=== PATIENT | female | born 1965 | race Caucasian/White ===

== ENCOUNTER → 2018-07-09 | Outpatient (CLI) | payer MEDICARE, OTHER ==
--- NOTE | 2018-07-09 16:12 | CT ---
EXAMINATION TYPE: CT abdomen pelvis wo con DATE OF EXAM: 07/09/2018 COMPARISON: None HISTORY: Episode of gross hematuria and low back pain. CT DLP: 1128 mGycm Automated exposure control for dose reduction was used. TECHNIQUE: Helical acquisition of images was performed from the lung bases through the pelvis. FINDINGS: LUNG BASES: Subsegmental linear changes at both lung bases.. LIVER/GB: Previous cholecystectomy changes are noted. PANCREAS: No significant abnormality is seen. SPLEEN: No significant abnormality is seen. Accessory spleen noted. ADRENALS: No significant abnormality is seen. KIDNEYS: 8mm exophytic lesion off the mid posterior pole right kidney measures 10 is indeterminate by noncontrast technique. No nephrolithiasis. ADENOPATHY: None visualized. OSSEOUS STRUCTURES: Hypertrophic and degenerative change of the spine.. BOWEL: Appendix normal. Diverticulosis of the colon. OTHER: Bladder is nondistended and limited in assessment. IMPRESSION: 1. No hydronephrosis or nephrolithiasis. Indeterminate 8 mm right renal lesion. Consider follow-up CT scan with contrast or MRI for further evaluation. 2. Postcholecystectomy changes. 3. The bladder is nondistended and limited in assessment. No obvious calcification or mucosal lesion. 4. Diverticulosis with no CT evidence of diverticulitis.
== END | disposition home or self-care (01) ==
LOC: RADCTMAIN 13:38
PROVIDERS: ATTEND Urology
DX: K57.90 Diverticulosis of intestine, part unspecified, without perforation or abscess without bleeding (principal); Z90.49 Acquired absence of other specified parts of digestive tract; Z91.048 Other nonmedicinal substance allergy status
CPT/HCPCS: 74176

== ENCOUNTER → 2019-01-15 | Outpatient (CLI) | payer MEDICARE, OTHER ==
--- NOTE | 2019-01-15 11:40 | US ---
EXAMINATION TYPE: US kidneys/renal and bladder DATE OF EXAM: 01/15/2019 COMPARISON: CT 07/09/2018 CLINICAL HISTORY: D41.01 R renal Mass. Right Renal mass seen on CT, pt states microscopic hematuria a nd urinary frequency EXAM MEASUREMENTS: Right Kidney: 11.2 x 5.0 x 5.2 cm Left Kidney: 10.4 x 5.5 x 4.1 cm Right Kidney: No evidence of hydro, hypoechoic lesion mid/lateral as internal debris and measures 1.7 x 1.1 x 1.7 cm . This does demonstrate increased through transmission Left Kidney: Appeared wnl Bladder: not fully distended, pt states bladder feels full Bilateral Jets seen: Left jet visualized There is no evidence for hydronephrosis at this point in time. No nephrolithiasis is seen. The uri nary bladder is anechoic. IMPRESSION: Complicated 1.7 cm right renal cyst. When measured in the coronal plane on the prior of 07/09/2018 this measures 1.4 cm. Given interval growth and slight internal complication short-term follow-up ultraso und in 6 months is recommended.
== END | disposition home or self-care (01) ==
LOC: RADUSWWP 10:10
PROVIDERS: ATTEND Urology
DX: N28.1 Cyst of kidney, acquired (principal); Z91.048 Other nonmedicinal substance allergy status
CPT/HCPCS: 76770

== ENCOUNTER → 2020-03-26 | Outpatient (CLI) | payer MEDICARE, OTHER ==
--- NOTE | 2020-03-26 10:08 | US ---
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 EXAM MEASUREMENTS: Right Kidney: 11.6 x 4.5 x 6.0 cm Left Kidney: 10.5 x 4.9 x 5.1 cm Right Kidney: No hydronephrosis. Exophytic cystic lesion visualized measuring 1.8 x 1.6 x 1.9 cm , al though this has increased in size from the prior ultrasound of 01/15/2019 where this measured 1.7 x 1. 1 x 1.7 cm there is no current internal complexity and this does measure fluid attenuation on the omaira or CT of 07/09/2018. Left Kidney: No hydronephrosis or masses seen Bladder: wnl Bilateral Jets seen: Yes There is no evidence for hydronephrosis at this point in time. No nephrolithiasis is seen. The urin ana cristina bladder is anechoic. Bilateral ureteral jets are seen. IMPRESSION: Evolving right renal cyst has slightly increased in size however decreased and complexity . This now appears anechoic with increased through transmission indicative of a simple cyst and appea rs benign sonographically.
== END | disposition home or self-care (01) ==
LOC: RADUSWWP 08:21
PROVIDERS: ATTEND Urology
DX: N28.1 Cyst of kidney, acquired (principal); Z91.048 Other nonmedicinal substance allergy status
CPT/HCPCS: 76770

== ENCOUNTER → 2020-08-11 | Outpatient (CLI) | payer MEDICARE, OTHER ==
--- NOTE | 2020-08-12 07:34 | US ---
EXAMINATION TYPE: US kidneys/renal and bladder DATE OF EXAM: 08/11/2020 COMPARISON: US 03/26/2020 CLINICAL HISTORY: N28.1 Cyst of kidney, acquired.... EXAM MEASUREMENTS: Right Kidney: 11.1 x 4.9 x 4.7 cm Left Kidney: 11.0 x 6.0 x 4.7 cm Right Kidney: No hydronephrosis. Cyst lower pole measuring 1.8 cm Left Kidney: No hydronephrosis or masses seen Bladder: wnl Bilateral Jets seen: yes IMPRESSION: 1. Simple appearing right renal cyst
== END | disposition home or self-care (01) ==
LOC: RADUSWWP 16:25
PROVIDERS: ATTEND Student in an Organized Health Care Education/Training Program
DX: N28.1 Cyst of kidney, acquired (principal); N18.30 Chronic kidney disease, stage 3 unspecified
CPT/HCPCS: 76770

== ENCOUNTER 2020-11-02 07:10 | Day surgery (SDC) | payer MEDICARE, OTHER ==
[2020-11-02] MEDS ORDERED: LACTATED RINGERS 1,000 ML IV SCH (07:24)
[2020-11-02] MEDS ORDERED: LIDOCAINE 1% (10MG/ML) FOR IV START INTRADERMA PRN (07:24)
[2020-11-02 07:40] VITALS: RESP 16; TEMP 98.3
[2020-11-02 08:03] LABS: Glucose,Whole Blood 179 mg/dL (75-99)
[2020-11-02] MEDS ORDERED: LIDOCAINE 1% INJ 10MG/ML (20 ML MDV) ONE (08:05)
[2020-11-02] MEDS ORDERED: PROPOFOL 10 MG/ML 20 ML VIAL IV ONE (08:05)
--- NOTE | 2020-11-02 08:53 | P.PCN ---
Date of Procedure: 11/02/20 Description of Procedure: BRIEF HISTORY: Patient is a 5-year-old male for outpatient colonoscopy for screening for malignant neoplasm of the colon. She denies any family history of colon cancer. Does suffer from constipation at baseline. No recent change in bowel habits. PROCEDURE PERFORMED: Colonoscopy with polypectomy. PREOPERATIVE DIAGNOSIS: Screening blood loss of the colon, last colonoscopy 10 years. ESTIMATED BLOOD LOSS: Minimal. IV sedation per Anesthesia. PROCEDURE: After informed consent was obtained, the patient, was brought into the endoscopy unit. IV sedation was administered by Anesthesia under continuous monitoring. Digital rectal examination was normal. Initially the Olympus CF-190 flexible video colonoscope was then inserted in the rectum, gradually advanced into the cecum without any difficulty. Careful examination was performed as the scope was gradually being withdrawn. Ileocecal valve and the appendiceal orifice were visualized and appeared normal. Prep was excellent. Mucosa of the cecum, ascending colon, transverse colon, descending colon, sigmoid colon, and rectum appeared normal. Multiple small and large diverticula in sigmoid colon noted. Flat 4 mm rectal polyp removed with cold snare polypectomy. Retroflexion was performed in the rectum and no lesions were seen, internal hemorrhoids. The patient tolerated the procedure well. IMPRESSION: Flat rectal polyp removed with cold snare. Moderate sigmoid diverticulosis. Internal hemorrhoids. RECOMMENDATIONS: Findings of this examination were discussed with the patient. Okay to resume diet. Okay to medications. Await pathology from polypectomy. Recommend repeat colonoscopy in 7 years pending pathology from polypectomy.
[2020-11-02 09:02] VITALS: BP 108/80; PULSE 72
== END 2020-11-02 09:15 | disposition home or self-care (01) ==
LOC: ORWHC2ENDO 07:10
PROVIDERS: ATTEND Internal Medicine
DX: Z12.11 Encounter for screening for malignant neoplasm of colon (principal); K62.1 Rectal polyp; K57.30 Diverticulosis of large intestine without perforation or abscess without bleeding; K64.8 Other hemorrhoids; I12.9 Hypertensive chronic kidney disease with stage 1 through stage 4 chronic kidney disease, or unspecified chronic kidney disease; E11.22 Type 2 diabetes mellitus with diabetic chronic kidney disease; N18.30 Chronic kidney disease, stage 3 unspecified; Z91.048 Other nonmedicinal substance allergy status; J45.909 Unspecified asthma, uncomplicated; E78.5 Hyperlipidemia, unspecified; F41.9 Anxiety disorder, unspecified; K21.9 Gastro-esophageal reflux disease without esophagitis; K44.9 Diaphragmatic hernia without obstruction or gangrene; Z85.820 Personal history of malignant melanoma of skin; Z79.51 Long term (current) use of inhaled steroids; Z79.84 Long term (current) use of oral hypoglycemic drugs; Z79.899 Other long term (current) drug therapy
CPT/HCPCS: 88305; 45385; J2001; J2704

== ENCOUNTER 2020-12-13 06:56 | Day surgery (SDC) | payer MEDICARE, OTHER ==
[2020-12-10 11:19] VITALS: BMI 30.2
[~2020-12-13 06:56] MED LIST: LACTATED RINGERS 1,000 ML IV SCH
[2020-12-13 07:19] VITALS: RESP 16; TEMP 98.4
[2020-12-13 07:32] LABS: Glucose,Whole Blood 120 mg/dL (75-99)
[2020-12-13] MEDS ORDERED: LIDOCAINE 1% (10MG/ML) FOR IV START INTRADERMA ONE (07:32)
[2020-12-13] MEDS ORDERED: LIDOCAINE 1% INJ 10MG/ML (20 ML MDV) ONE (07:42)
[2020-12-13] MEDS ORDERED: PROPOFOL 10 MG/ML 20 ML VIAL IV ONE (07:42)
--- NOTE | 2020-12-13 08:05 | P.PCN ---
Date of Procedure: 12/13/20 Description of Procedure: BRIEF HISTORY: Patient is a 55-year-old female presenting with complaints of epigastric abdominal pain for esophagogastroduodenoscopy. Patient reports frequent episodes of epigastric pain. She'll have episodes of vomiting and reports difficulty digesting. She was started on Protonix therapy for the past 3-8 weeks but feels that her symptoms of pain in spite of the medication. PROCEDURE PERFORMED: Esophagogastroduodenoscopy with biopsy. PREOPERATIVE DIAGNOSIS: Epigastric abdominal pain, vomiting. ESTIMATED BLOOD LOSS: Minimal. IV sedation per anesthesia. PROCEDURE: After informed consent was obtained, the patient was brought into the endoscopy unit. IV sedation was administered by Anesthesia under continuous monitoring. Initially the Olympus GIF-190 video endoscope was inserted into the mouth. Esophagus intubated without any difficulty. It was gradually advanced into the stomach and duodenum and carefully examined. The bulb and the second part of the duodenum appeared normal, with biopsies taken. The scope at this time was withdr awn to the stomach, adequately insufflated with air, and upon careful examination, mucosa of the antrum, body, cardia and the fundus appeared normal, except for some mild erythema in the antrum and body suggestive of mild gastritis with biopsies taken. It appeared as if the fundus and cardia were in the intrathoracic cavity and this may be causing the patient's symptoms of vomiting. The scope was then withdrawn into the esophagus. The GE junction was located at 39 cm from the incisors and biopsied. The esophagus appeared normal, with mid esophageal biopsies taken. There were no erosions or ulcerations seen and the patient tolerated the procedure well. IMPRESSION: 1. Mild gastritis. 2. Biopsies of the duodenum, antrum and body, GE junction and midesophagus. RECOMMENDATIONS: The findings of this examination were discussed with the patient and her family. Okay to resume diet. Okay to resume medications. Can consider x-ray of the chest and abdomen or x-ray barium swallow to rule out migration of part of the stomach into the intrathoracic cavity which appeared to be a possibility on EGD, if this is confirmed patient will benefit from referral to the surgical service for further evaluation. Otherwise continue medical management. Await pathology from biopsies.
[2020-12-13 08:21] VITALS: BP 149/94; PULSE 63
== END 2020-12-13 08:48 | disposition home or self-care (01) ==
LOC: ORWHC2ENDO 06:56
PROVIDERS: ATTEND Internal Medicine
DX: K29.80 Duodenitis without bleeding (principal); K29.50 Unspecified chronic gastritis without bleeding; K21.00 Gastro-esophageal reflux disease with esophagitis, without bleeding; I10 Essential (primary) hypertension; E78.5 Hyperlipidemia, unspecified; N28.9 Disorder of kidney and ureter, unspecified; E11.9 Type 2 diabetes mellitus without complications; G89.29 Other chronic pain; M54.2 Cervicalgia; M06.9 Rheumatoid arthritis, unspecified; R56.9 Unspecified convulsions; Z97.2 Presence of dental prosthetic device (complete) (partial); Z79.84 Long term (current) use of oral hypoglycemic drugs; Z79.899 Other long term (current) drug therapy
CPT/HCPCS: 88305; 43239; J2001; J2704

== ENCOUNTER → 2021-01-21 | Outpatient (CLI) | payer MEDICARE, OTHER ==
--- NOTE | 2021-01-21 12:45 | FL ---
EXAMINATION TYPE: FL barium swallow DATE OF EXAM: 01/21/2021 CLINICAL HISTORY: Dysphasia. Hiatal hernia on recent endoscopy per patient. Recurrent episodes of vom iting over last 4 months per patient. TECHNIQUE: A double contrast esophagram is performed utilizing air and barium. A total of 34 second s of fluoroscopic time was utilized during procedure and 43 images obtained COMPARISON: CT abdomen and pelvis July 09, 2018 FINDINGS: The esophagus shows satisfactory motility and emptying into the stomach. No diverticulum. No evidence of fixed hiatal hernia or stricture noted. No intraluminal mass. No significant gastroeso phageal reflux was seen during real time performance of this study. Cholecystectomy clips incidentall y noted during real-time performance of study. IMPRESSION: No significant abnormality is seen to account for patient's symptoms.
== END ==
LOC: RADUSWWP 10:56
PROVIDERS: ATTEND Internal Medicine
DX: K44.9 Diaphragmatic hernia without obstruction or gangrene (principal)
CPT/HCPCS: 74220

== ENCOUNTER → 2021-01-31 | Outpatient (CLI) | payer MEDICARE, OTHER ==
--- NOTE | 2021-01-31 13:33 | NM ---
EXAMINATION TYPE: NM gastric emptying static DATE OF EXAM: 01/31/2021 COMPARISON: NONE HISTORY: E 11.65, diabetes type 2 and hyperglycemia Following administration of 2.0 mCi Tc 99m Sulfur Colloid with 3.5 ounces of egg beaters, 7 ounces of water, 3/4 piece of toast with jam, projection images of the abdomen were obtained 10 minutes post i ngestion. Patient Emptying Values 1 Hour 13 % 2 Hours 39 % 3 Hours 68 % 4 Hours 85 % Gastroesophagel reflux: None IMPRESSION: Gastric emptying: Is delayed Gastroesophageal reflux: None Gastric emptying normal percentage values: 30 minutes: <70% of retention (> 30% emptying) suggests abnormally fast emptying. 60 minutes: <90% retention (>10% emptying) is normal; less than 30% retention (>70% emptying) suggest s abnormally rapid empying. 90 minutes: <65% retention (> 35% emptying) is normal. 120 minutes: <60% retention (> 40% emptying) is normal. 180 minutes: <30% retention (> 70% emptying) is normal. Gastric emptying T-1/2: Solid: The normal range is 60-105 minutes Liquid only: Normal range is 10-45 minutes. Liquid only-children: At 60 minutes, normal range is 44-58 % . Liquid only-infants: At 60 minutes, normal range is 32-64 %.
== END | disposition home or self-care (01) ==
LOC: RADNMMAIN 06:50
PROVIDERS: ATTEND Internal Medicine
DX: K30 Functional dyspepsia (principal)
CPT/HCPCS: 78264; A9541

== ENCOUNTER 2021-09-18 14:57 | Inpatient (IN) | payer MEDICARE, MEDICAID ==
--- NOTE | 2021-09-18 15:46 | ED ---
General Adult HPI - General Chief complaint: Psychiatric Symptoms Stated complaint: mental health Time Seen by Provider: 09/18/21 15:15 Source: patient, police, EMS Mode of arrival: ambulatory Limitations: no limitations - History of Present Illness Initial comments: Dictation was produced using [employer] dictation software. please excuse any grammatical, word or spelling errors. Chief Complaint: 55-year-old female presents via Police Department for suicidal attempt History of Present Illness: 55-year-old female she is a poor historian. She is allegedly brought here by police department for attempted suicide. Patient states she took 6 of her prescription medications, gabapentin and cyclobenzaprine in order to try to harm herself. [employer] was called by patient's . Patient reports that her always does this. She does not know the exact time of ingestion but it was sometime today. According to patient's medical chart she takes 10 mg tabs of cyclobenzaprine and 300 mg tabs of gabapentin. She does not feel suicidal at this time. She does not felt depressed. She is ready to go home she states. The ROS documented in this emergency department record has been reviewed and confirmed by me. Those systems with pertinent positive or negative responses have been documented in the HPI. All other systems are other negative and/or noncontributory. PHYSICAL EXAM: General Impression: Alert and oriented x3, not in acute distress HEENT: Normocephalic atraumatic, extra-ocular movements intact, pupils equal and reactive to light bilaterally, mucous membranes moist. Cardiovascular: Heart regular rate and rhythm Chest: Able to complete full sentences, no retractions, no tachypnea Abdomen: abdomen soft, non-tender, non-distended, no organomegaly Musculoskeletal: Pulses present and equal in all extremities, no peripheral edema Motor: no focal deficits noted Neurological: CN II-XII grossly intact, no focal motor or sensory deficits noted Skin: Multiple superficial abrasions to the extremities Psych: Normal affect and mood ED course: 55-year-old well-appearing female presents to the emergency depa rtment for suicidal attempt. She allegedly overdosed and has what appears to be self inflicted wounds although superficial. [employer] enforcement was called by who was worried about her well-being. Patient allegedly took 6 each of her Flexeril and gabapentin prescription medications sometime today. Signs upon arrival are within acceptable limits. EKG shows no prolonged QT or widened QRS. Poison controlled was contacted and no recommendations except for observation. Laboratory evaluation obtained. CBC, metabolic panel is unremarkable. Tox labs are negative. Patient medically cleared for EPS. EPS evaluated patient and will admit to inpatient psychiatry. EKG interpretation: Ventricular rate 75, normal sinus rhythm, OH interval 150, QRS 80, QTc 413. No OH prolongation, no QTC prolongation, no ST or T-wave changes noted. Overall, this EKG is unremarkable - Related Data Home Medications Medication Instructions Recorded Confirmed Cyclobenzaprine [Flexeril] 10 mg PO TID 08/17/16 09/18/21 DULoxetine HCL [Cymbalta] 30 mg PO BID 08/17/16 09/18/21 metFORMIN HCL [Glucophage] 1,000 mg PO BID 08/17/16 09/18/21 Pantoprazole Sodium 40 mg PO DAILY 10/27/20 09/18/21 Pioglitazone [Actos] 30 mg PO HS 12/10/20 09/18/21 Albuterol Sulfate [Proventil Hfa] 2 puff INHALATION RT-Q4H PRN 09/18/21 09/18/21 Atorvastatin [Lipitor] 80 mg PO DAILY 09/18/21 09/18/21 Gabapentin 800 mg PO TID 09/18/21 09/18/21 Ondansetron [Zofran] 4 mg PO DAILY PRN 09/18/21 09/18/21 Sucralfate [Carafate] 1 gm PO BID 09/18/21 09/18/21 sitaGLIPtin [Januvia] 50 mg PO DAILY 09/18/21 09/18/21 Allergies Allergy/AdvReac Type Severity Reaction Status Date / Time adhesive tape Allergy Rash/Hives Verified 09/18/21 15:13 Review of Systems ROS Statement: Those systems with pertinent positive or pertinent negative responses have been documented in the HPI. ROS Other: All systems not noted in ROS Statement are negative. Past Medical History Past Medical History: Asthma, Cancer, Diabetes Mellitus, GERD/Reflux, Hyperlipidemia, Hypertension, Musculoskeletal Disorder, Renal Disease, Rheumatoid Arthritis (RA), Seizure Disorder Additional Past Medical History / Comment(s): chronic neck pain, cevical ca, MELANOMA, AND BASAL CELL CARCINOMA, hiatal hernia. stage III CHRONIC KIDNEY DISEASE. HAD LAST SEIZURE IN 2014 History of Any Multi-Drug Resistant Organisms: MRSA Date of last positivie culture/infection: 2016 MDRO Source:: lt hand Past Surgical History: Section, Cholecystectomy, Tonsillectomy, Tubal Ligation Past Anesthesia/Blood Transfusion Reactions: No Reported Reaction, Family History of Problems w/ Anesthesia Additional Past Anesthesia/Blood Transfusion Reaction / Comment(s): daughter and grandson wake up during surgery and both break out in rash Past Psychological History: Anxiety, Depression, Panic Disorder Smoking Status: Current every day smoker Past Alcohol Use History: None Reported Past Drug Use History: Marijuana - Past Family History Father Family Medical History: Cancer General Exam Limitations: no limitations Course Vital Signs 09/18/21 15:02 Temperature 98.1 F Pulse Rate 85 Respiratory 18 Rate Blood Pressure 154/110 O2 Sat by Pulse 97 Oximetry Medical Decision Making - Lab Data Result diagrams: 09/18/21 15:46 09/18/21 15:46 Lab Results 09/18/21 09/18/21 Range/Units 15:46 15:46 WBC 7.3 (3.8-10.6) k/uL RBC 5.22 (3.80-5.40) m/uL Hgb 14.8 (11.4-16.0) gm/dL Hct 44.9 (34.0-46.0) % MCV 85.9 (80.0-100.0) fL MCH 28.3 (25.0-35.0) pg MCHC 33.0 (31.0-37.0) g/dL RDW 14.4 (11.5-15.5) % Plt Count 284 (150-450) k/uL MPV 7.7 Neutrophils % 69 % Lymphocytes % 22 % Monocytes % 4 % Eosinophils % 3 % Basophils % 1 % Neutrophils # 5.1 (1.3-7.7) k/uL Lymphocytes # 1.6 (1.0-4.8) k/uL Monocytes # 0.3 (0-1.0) k/uL Eosinophils # 0.2 (0-0.7) k/uL Basophils # 0.1 (0-0.2) k/uL Sodium 140 (137-145) mmol/L Potassium 4.7 (3.5-5.1) mmol/L Chloride 106 (98-107) mmol/L Carbon Dioxide 26 (22-30) mmol/L Anion Gap 8 mmol/L BUN 17 (7-17) mg/dL Creatinine 1.28 H (0.52-1.04) mg/dL Est GFR (CKD-EPI)AfAm 54 (>60 ml/min/1.73 sqM) Est GFR (CKD-EPI)NonAf 47 (>60 ml/min/1.73 sqM) Glucose 227 H (74-99) mg/dL Osmolality 305 H (280-301) mosm/kg Calcium 10.1 (8.4-10.2) mg/dL Total Bilirubin 0.5 (0.2-1.3) mg/dL AST 15 (14-36) U/L ALT 7 (4-34) U/L Alkaline Phosphatase 97 (38-126) U/L Total Protein 6.8 (6.3-8.2) g/dL Albumin 4.1 (3.5-5.0) g/dL Salicylates <1.0 mg/dL Acetaminophen <10.0 ug/mL Serum Alcohol <10 mg/dL Disposition Clinical Impression: Suicidal behavior Disposition: ADMITTED IP TO THIS HOSP Condition: Fair Referrals: None,Stated [Primary Care Provider] - 1-2 days
[2021-09-18 16:12] LABS: Basophils # (A) 0.1 k/uL (0-0.2); Basophils % (A) 1 %; Eosinophils # (A) 0.2 k/uL (0-0.7); Eosinophils % (A) 3 %; HCT 44.9 % (34.0-46.0); HGB 14.8 gm/dL (11.4-16.0); Lymphocytes # (A) 1.6 k/uL (1.0-4.8); Lymphocytes % (A) 22 %; MCH 28.3 pg (25.0-35.0); MCV 85.9 fL (80.0-100.0); Mean Platelet Volume 7.7; Monocytes # (A) 0.3 k/uL (0-1.0); Monocytes % (A) 4 %; Neutrophils # (A) 5.1 k/uL (1.3-7.7); Neutrophils % (A) 69 %; Platelet Count 284 k/uL (150-450); RBC 5.22 m/uL (3.80-5.40); RDW 14.4 % (11.5-15.5); WBC 7.3 k/uL (3.8-10.6)
[2021-09-18 16:16] LABS: ALT 7 U/L (4-34); AST 15 U/L (14-36); Acetaminophen <10.0 ug/mL; African American GFR (CKD) 54 (>60 ml/min/1.73 sqM); Albumin 4.1 g/dL (3.5-5.0); Alcohol <10 mg/dL; Alkaline Phosphatase 97 U/L (38-126); Anion Gap 8 mmol/L; Blood Urea Nitrogen 17 mg/dL (7-17); Calcium 10.1 mg/dL (8.4-10.2); Carbon Dioxide 26 mmol/L (22-30); Chloride 106 mmol/L (98-107); Glucose 227 mg/dL (74-99); Non-African American GFR(CKD) 47 (>60 ml/min/1.73 sqM); Potassium 4.7 mmol/L (3.5-5.1); Salicylate <1.0 mg/dL; Sodium 140 mmol/L (137-145); Total Bilirubin 0.5 mg/dL (0.2-1.3); Total Protein 6.8 g/dL (6.3-8.2)
[2021-09-18] MEDS ORDERED: diphenhydrAMINE 50 MG/ML 1 ML VIAL IM STA (19:29)
[2021-09-18] MEDS ORDERED: MAGNESIUM HYDROXIDE 2,400 MG/10 ML CUP PO PRN (19:37)
[2021-09-18] MEDS ORDERED: MAG HYDROX/AL HYDROX/SIMETH 30 ML CUP PO PRN (19:37)
[2021-09-18] MEDS ORDERED: LORazepam 1 MG TAB PO PRN (19:37)
[2021-09-18] MEDS ORDERED: ACETAMINOPHEN TAB 325 MG TAB PO PRN (19:37)
[2021-09-18] MEDS ORDERED: LORazepam 2 MG/ML INJ IM PRN (19:40)
[2021-09-18] MEDS ORDERED: LORazepam 2 MG/ML INJ IM ONE (19:40)
[2021-09-18] MEDS ORDERED: HALOPERIDOL LACTATE 5 MG/ML 1 ML VIAL IM ONE (19:40)
[2021-09-18] MEDS ORDERED: HALOPERIDOL LACTATE 5 MG/ML 1 ML VIAL IM PRN (19:40)
[2021-09-18] MEDS ORDERED: ALBUTEROL HFA INHALER INHALATION PRN (19:41)
[2021-09-18] MEDS ORDERED: ONDANSETRON 4 MG TAB PO PRN (19:41)
[2021-09-18] MEDS: PIOGLITAZONE 30 MG TAB PO SCH (21:56)
[2021-09-18] MEDS: metFORMIN 500 MG TAB PO SCH (21:57)
[2021-09-19 06:43] VITALS: BP 150/71; PULSE 54; RESP 18; TEMP 96.1
[2021-09-19 07:27] LABS: Basophils # (A) 0.1 k/uL (0-0.2); Basophils % (A) 1 %; Eosinophils # (A) 0.3 k/uL (0-0.7); Eosinophils % (A) 3 %; HCT 48.2 % (34.0-46.0); Lymphocytes # (A) 2.2 k/uL (1.0-4.8); Lymphocytes % (A) 30 %; MCH 27.5 pg (25.0-35.0); MCHC 31.2 g/dL (31.0-37.0); MCV 88.2 fL (80.0-100.0); Mean Platelet Volume 7.3; Monocytes # (A) 0.3 k/uL (0-1.0); Monocytes % (A) 4 %; Neutrophils # (A) 4.6 k/uL (1.3-7.7); Neutrophils % (A) 60 %; Platelet Count 292 k/uL (150-450); RBC 5.46 m/uL (3.80-5.40); WBC 7.6 k/uL (3.8-10.6)
[2021-09-19 07:43] LABS: ALT 6 U/L (4-34); AST 26 U/L (14-36); African American GFR (CKD) 59 (>60 ml/min/1.73 sqM); Alkaline Phosphatase 92 U/L (38-126); Anion Gap 10 mmol/L; Blood Urea Nitrogen 15 mg/dL (7-17); Calcium 10.3 mg/dL (8.4-10.2); Carbon Dioxide 25 mmol/L (22-30); Chloride 107 mmol/L (98-107); Glucose 172 mg/dL (74-99); Non-African American GFR(CKD) 51 (>60 ml/min/1.73 sqM); Potassium 4.3 mmol/L (3.5-5.1); Sodium 142 mmol/L (137-145); Total Bilirubin 0.8 mg/dL (0.2-1.3); Total Protein 6.8 g/dL (6.3-8.2)
[2021-09-19] MEDS: ATORVASTATIN 80 MG TAB PO SCH (09:19)
[2021-09-19] MEDS: metFORMIN 500 MG TAB PO SCH (09:19)
[2021-09-19] MEDS: PANTOPRAZOLE SODIUM 40 MG GRANULE PKT PO SCH (09:19)
[2021-09-19] MEDS: LINAGLIPTIN 5 MG TABLET PO SCH (09:19)
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
[2021-09-19] MEDS: DULoxetine HCL 30 MG CAPSULE.DR PO SCH ×2 (12:08→21:05)
[2021-09-19 20:38] LABS: Chol/HDL Ratio 3.62 Ratio; LDL Cholesterol,Calculated 52.8 mg/dL (0.0-131.0)
[2021-09-19] MEDS: PIOGLITAZONE 30 MG TAB PO SCH (21:22)
[2021-09-20 08:04] LABS: Glucose,Whole Blood 147 mg/dL (75-99)
[2021-09-20] MEDS: ATORVASTATIN 80 MG TAB PO SCH (08:38)
[2021-09-20] MEDS: PANTOPRAZOLE SODIUM 40 MG GRANULE PKT PO SCH ×2 (08:38→08:42)
[2021-09-20] MEDS: LINAGLIPTIN 5 MG TABLET PO SCH (08:39)
[2021-09-20] MEDS: DULoxetine HCL 30 MG CAPSULE.DR PO SCH (08:39)
[2021-09-20 12:40] LABS: Glucose,Whole Blood 174 mg/dL (75-99)
[2021-09-20 14:08] VITALS: BMI 28.0
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
== END 2021-09-20 14:06 | disposition home or self-care (01) | DRG 918 ==
LOC: EC 14:57 → 3MHU 19:35
PROVIDERS: ADMIT Psychiatry & Neurology Psychiatry; ATTEND Psychiatry & Neurology Psychiatry
DX: T42.6X1A Poisoning by other antiepileptic and sedative-hypnotic drugs, accidental (unintentional), initial encounter (principal); T48.1X1A Poisoning by skeletal muscle relaxants [neuromuscular blocking agents], accidental (unintentional), initial encounter; N18.30 Chronic kidney disease, stage 3 unspecified; Z20.822 Contact with and (suspected) exposure to COVID-19; S51.812A Laceration without foreign body of left forearm, initial encounter; S61.511A Laceration without foreign body of right wrist, initial encounter; S61.512A Laceration without foreign body of left wrist, initial encounter; X78.9XXA Intentional self-harm by unspecified sharp object, initial encounter; E11.22 Type 2 diabetes mellitus with diabetic chronic kidney disease; E78.5 Hyperlipidemia, unspecified; F17.210 Nicotine dependence, cigarettes, uncomplicated; F32.9 Major depressive disorder, single episode, unspecified; F41.0 Panic disorder [episodic paroxysmal anxiety]; G40.909 Epilepsy, unspecified, not intractable, without status epilepticus; I12.9 Hypertensive chronic kidney disease with stage 1 through stage 4 chronic kidney disease, or unspecified chronic kidney disease; J45.909 Unspecified asthma, uncomplicated; K21.9 Gastro-esophageal reflux disease without esophagitis; M06.9 Rheumatoid arthritis, unspecified; Z85.820 Personal history of malignant melanoma of skin; Z91.048 Other nonmedicinal substance allergy status; Z87.19 Personal history of other diseases of the digestive system; Z90.49 Acquired absence of other specified parts of digestive tract; Z98.51 Tubal ligation status; Z79.899 Other long term (current) drug therapy; Z79.84 Long term (current) use of oral hypoglycemic drugs
CPT/HCPCS: 36415; 80053; 80061; 80143; 80179; 80320; 83036; 83930; 84443; 85025; 87635; 93005; 96372; 99285

== ENCOUNTER 2023-06-15 12:19 | Emergency (ER) | payer MEDICARE, OTHER ==
[2023-06-15] MEDS ORDERED: Acetaminophen-Codeine 300-30mg TAB PO STA (13:47)
--- NOTE | 2023-06-15 14:27 | ED ---
Lower Extremity Injury HPI - General Chief Complaint: Extremity Injury, Lower Stated Complaint: Right Leg Injury Time Seen by Provider: 06/15/23 13:37 Source: patient, RN notes reviewed Mode of arrival: wheelchair Limitations: no limitations - History of Present Illness Initial Comments: This is a 57-year-old female who presents to the emergency department for a fall. Patient states that she tripped and fell yesterday and has since been having pain from the right hip down to the right knee area. She is requesting x-rays to rule out any fractures. States that she has fragile bones. She is able to tolerate the pain, but states that it is making ambulation somewhat difficult. Denies hitting her head, sustaining any loss of consciousness, or taking any blood thinners. Denies any fevers, chills, sore throat, cough, dyspnea, chest pain, palpitations, abdominal pain, nausea, vomiting, diarrhea, back pain, or headaches. MD Complaint: hip injury - Related Data Home Medications Medication Instructions Recorded Confirmed Cyclobenzaprine [Flexeril] 10 mg PO TID 08/17/16 09/18/21 metFORMIN HCL [Glucophage] 1,000 mg PO BID 08/17/16 09/18/21 Pioglitazone [Actos] 30 mg PO HS 12/10/20 09/18/21 Albuterol Sulfate [Proventil Hfa] 2 puff INHALATION RT-Q4H PRN 09/18/21 09/18/21 Atorvastatin [Lipitor] 80 mg PO DAILY 09/18/21 09/18/21 Gabapentin 800 mg PO TID 09/18/21 09/18/21 Sucralfate [Carafate] 1 gm PO BID 09/18/21 09/18/21 sitaGLIPtin [Januvia] 50 mg PO DAILY 09/18/21 09/18/21 Previous Rx's Medication Instructions Recorded DULoxetine HCL [Cymbalta] 30 mg PO BID capsule 09/20/21 Allergies Allergy/AdvReac Type Severity Reaction Status Date / Time adhesive tape Allergy Rash/Hives Verified 06/15/23 12:41 Review of Systems ROS Statement: Those systems with pertinent positive or pertinent negative responses have been documented in the HPI. ROS Other: All systems not noted in ROS Statement are negative. Past Medical History Past Medical History: Asthma, Cancer, Diabetes Mellitus, GERD/Reflux, Hyperlipidemia, Hypertension, Musculoskeletal Disorder, Renal Disease, Rheumatoid Arthritis (RA), Seizure Disorder Additional Past Medical History / Comment(s): chronic neck pain, cevical ca, MELANOMA, AND BASAL CELL CARCINOMA, hiatal hernia. stage III CHRONIC KIDNEY DISEASE. HAD LAST SEIZURE IN 2014 History of Any Multi-Drug Resistant Organisms: MRSA Date of last positivie culture/infection: 2016 MDRO Source:: lt hand Past Surgical History: Section, Cholecystectomy, Tonsillectomy, Tubal Ligation Past Anesthesia/Blood Transfusion Reactions: No Reported Reaction, Family History of Problems w/ Anesthesia Additional Past Anesthesia/Blood Transfusion Reaction / Comment(s): daughter and grandson wake up during surgery and both break out in rash Past Psychological History: Anxiety, Depression, Panic Disorder Smoking Status: Current every day smoker Past Alcohol Use History: None Reported Past Drug Use History: Marijuana - Past Family History Father Family Medical History: Cancer General Exam Limitations: no limitations General appearance: alert, in no apparent distress Head exam: Present: atraumatic, normocephalic, normal inspection Respiratory exam: Present: normal lung sounds bilaterally. Absent: respiratory distress, wheezes, rales, rhonchi, stridor Cardiovascular Exam: Present: regular rate, normal rhythm, normal heart sounds. Absent: systolic murmur, diastolic murmur, rubs, gallop, clicks Extremities exam: Present: other (Tenderness to palpation over the lateral aspect of the right femur. No overlying deformities. 2+ DP and PT pulses. Capillary refill less than 1 second.) Neurological exam: Present: alert, oriented X3, CN II-XII intact Psychiatric exam: Present: normal affect, normal mood Skin exam: Present: warm, dry, intact, normal color. Absent: rash Course Vital Signs 06/15/23 06/15/23 12:39 15:06 Temperature 98.5 F 98.4 F Pulse Rate 80 77 Respiratory 18 16 Rate Blood Pressure 114/78 120/78 O2 Sat by Pulse 98 98 Oximetry Medical Decision Making - Medical Decision Making This is a 57-year-old female who presents to the emergency department for right leg pain. Was pt. sent in by a medical professional or institution? @ -No Did you speak to anyone other than the patient for history? @ -No Did you review nursing and triage notes? @ -Yes, and I agree, it is accurate with regards to the patient's symptoms. Were old charts reviewed? @ -No Differential Diagnosis? @ -Differential Leg Pain: Leg fracture, leg sprain, DVT, PVD, arterial insufficiency, iliac artery aneurysm, cellulitis, compartment syndrome, tendinopathy, nerve entrapment, piriformis syndrome, osteoarthritis, rhabdomyolysis, myositis, cramping from an electrolyte imbalance, this is not meant to be an all inclusive list. EKG interpreted by me (3pts min.)? @ -Not obtained X-rays interpreted by me (1pt min.)? @ -X-ray of the right hip and femur obtained. My interpretation identifies no evidence of any acute fractures. CT interpreted by me (1pt min.)? @ -Not obtained U/S interpreted by me (1pt. min.)? @ -Not obtained What testing was considered but not performed? (CT, X-rays, U/S, labs)? Why? @ -None What meds were considered but not given? Why? @ -None Did you discuss the management of the patient with other professionals? @ -No Did you reconcile home meds? @ -No Was smoking cessation discussed for >3mins.? @ -No Was critical care preformed (if so, how long)? @ -No Were there social determinants of health that impacted care today? How? (Homelessness, low income, unemployed, alcoholism, drug addiction, transportation, low edu. Level, literacy, decrease access to med. care, prison, rehab)? @ -No Was there de-escalation of care discussed even if they declined? (Discuss DNR or withdrawal of care, Hospice)? @ -No What co-morbidities impacted this encounter? (DM, HTN, Smoking, COPD, CAD, Cancer, CVA, Hep., AIDS, mental health diagnosis, sleep apnea, morbid obesity)? @ -Osteoarthritis, RA Was patient admitted / discharged? @ -Discharged. X-ray of the right hip and femur obtained revealing no acute process. Pain well controlled in the emergency department. Advised she continue to alternate with Ibuprofen and Tylenol as needed for pain relief and follow up with her PCP. Undiagnosed new problem with uncertain prognosis? @ -None Drug Therapy requiring intensive monitoring for toxicity (Heparin, Nitro, Insulin, Cardizem)? @ -None Were any procedures done? @ -None Diagnosis/symptom? @ -Fall, right leg pain Acute, or Chronic, or Acute on Chronic? @ -Acute Uncomplicated (without systemic symptoms) or Complicated (systemic symptoms)? @ -Uncomplicated Side effects of treatment? @ -None Exacerbation, Progression, or Severe Exacerbation] @ -Not applicable Poses a threat to life or bodily function? @ -No Return precautions reviewed in depth, the patient is instructed to return to the emergency department with any new, worsening, or concerning symptoms. Patient verbalized understanding. This case was discussed in detail with the attending ED physician, Dr. Ballard. Presentation, findings, and treatment plan discussed in detail as well. - Radiology Data Radiology results: report reviewed, image reviewed Disposition Clinical Impression: Right leg pain Disposition: HOME SELF-CARE Instructions (If sedation given, give patient instructions): Leg Pain (ED) Additional Instructions: Return to the emergency department with any new, worsening, or concerning symptoms. Alternate with ibuprofen and Tylenol as needed for pain relief. Follow up with your primary care provider in 1-2 days. Is patient prescribed a controlled substance at d/c from ED?: No Referrals: Obey Meraz [Primary Care Provider] - 1-2 days
--- NOTE | 2023-06-15 14:37 | XR ---
EXAMINATION TYPE: XR femur RT DATE OF EXAM: 06/15/2023 CLINICAL HISTORY: pain TECHNIQUE: Two views of the right femur are obtained. COMPARISON: None. FINDINGS: There is no acute fracture or dislocation seen of the femur. The hip and knee joints appear within normal limits. The overlying soft tissue appears unremarkable. IMPRESSION: There is no acute fracture or dislocation seen of the femur. ICD 10 NO FRACTURE, INITIAL EVALUATION
--- NOTE | 2023-06-15 14:39 | XR ---
EXAMINATION TYPE: XR Hip Complete RT DATE OF EXAM: 06/15/2023 CLINICAL HISTORY: pain TECHNIQUE: AP and frogleg views of the right hip are obtained. COMPARISON: None. FINDINGS: There is no acute fracture/dislocation evident. The joint space appears within normal li mits. The overlying soft tissue appears unremarkable. IMPRESSION: 1. There is no acute fracture or dislocation. ICD 10 NO FRACTURE, INITIAL EVALUATION
[2023-06-15] MEDS ORDERED: ACET/COD 300 MG/30 MG STARTER PACK 6 TAB BTL PO STA (14:59)
[2023-06-15] MEDS ORDERED: IBUPROFEN 600 MG STARTER PACK 4 TAB BTL PO STA (14:59)
[2023-06-15 15:07] VITALS: BP 120/78; PULSE 77; RESP 16; TEMP 98.4
== END 2023-06-15 15:10 | disposition home or self-care (01) ==
LOC: SUPCPDRO 12:19 → EC 12:19
DX: M79.604 Pain in right leg (principal); E11.22 Type 2 diabetes mellitus with diabetic chronic kidney disease; I12.9 Hypertensive chronic kidney disease with stage 1 through stage 4 chronic kidney disease, or unspecified chronic kidney disease; E78.5 Hyperlipidemia, unspecified; N18.30 Chronic kidney disease, stage 3 unspecified; J45.909 Unspecified asthma, uncomplicated; F17.200 Nicotine dependence, unspecified, uncomplicated; F12.90 Cannabis use, unspecified, uncomplicated; Z86.59 Personal history of other mental and behavioral disorders; Z79.84 Long term (current) use of oral hypoglycemic drugs; Z79.899 Other long term (current) drug therapy; Z91.09 Other allergy status, other than to drugs and biological substances; W01.0XXA Fall on same level from slipping, tripping and stumbling without subsequent striking against object, initial encounter
CPT/HCPCS: 73502; 99283